=== PATIENT | female | born 1980 | race Caucasian/White ===

== ENCOUNTER 2017-02-24 17:53 | Emergency (ER) | payer MEDICAID ==
[2017-02-24 18:10] VITALS: BP 155/62
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
== END 2017-02-24 20:53 | disposition home or self-care (01) ==
LOC: DL.ED 17:53
DX: S90.31XA Contusion of right foot, initial encounter (principal); F17.210 Nicotine dependence, cigarettes, uncomplicated; F41.9 Anxiety disorder, unspecified; F32.9 Major depressive disorder, single episode, unspecified; Z88.5 Allergy status to narcotic agent; Z88.2 Allergy status to sulfonamides; Z98.890 Other specified postprocedural states; Z79.899 Other long term (current) drug therapy; Y08.89XA Assault by other specified means, initial encounter
CPT/HCPCS: 73620-RT; 80305; 81001; 81025; 99284

== ENCOUNTER 2017-12-27 07:03 | Emergency (ER) | payer MEDICAID ==
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
[2017-12-27 07:25] VITALS: BP 109/86
[2017-12-27] MEDS ORDERED: Lidocaine 1% 30 ML SDV INJECT ONE (08:06)
[2017-12-27] MEDS ORDERED: Bacitracin Oint 1 GM U/D Packet TOP ONE (08:06)
== END 2017-12-27 10:52 | disposition home or self-care (01) ==
LOC: DL.ED 07:03
DX: S01.81XA Laceration without foreign body of other part of head, initial encounter (principal); S05.12XA Contusion of eyeball and orbital tissues, left eye, initial encounter; F41.9 Anxiety disorder, unspecified; M79.672 Pain in left foot; F32.9 Major depressive disorder, single episode, unspecified; Z88.2 Allergy status to sulfonamides; Y04.8XXA Assault by other bodily force, initial encounter; Z79.899 Other long term (current) drug therapy; Z88.5 Allergy status to narcotic agent
CPT/HCPCS: 12001; 12011; 70450; 70486; 70490; 73630-LT; 99284